=== PATIENT | female | born 1965 | race African-American/Black ===

== ENCOUNTER 2022-11-23 18:43 | Emergency (ER) | payer OTHER, SELFPAY ==
--- NOTE | ~2022-11-23 | XR_ITS ---
EXAM: XR finger 1st LT min 2V DATE: 11/23/2022 19:02 HISTORY: pain, swelling distal phalanx thumb, injury . COMPARISON: None available. FINDINGS: Normal mineralization. No fracture or dislocation. No lytic or blastic lesion. Joint space s are mild scattered degenerative change. No erosion or periosteal change. Soft tissues within normal limits. IMPRESSION: No acute osseous finding in the left thumb. Reviewed, dictated and finalized at location K.
--- NOTE | 2022-11-23 18:48 | ED.UPPEXIN ---
HPI - Extremity Injury (Upper) General Chief Complaint: Extremity Injury, Upper Stated Complaint: lt thumb inj Time Seen by Provider: 11/23/22 19:03 Source: patient and RN notes reviewed Mode of arrival: ambulatory Limitations: no limitations History of Present Illness HPI narrative: 57-year-old female presents concern for injury to the 1st digit of her left hand. She reports she fell in her lung cerumen slammed the finger against the wheel of her treadmill. She reports this happened about 2 hours prior to arrival. She reports pain worsens when she flexes the digit MD complaint: injury to: finger Related Data Home Medications Medication Instructions Recorded Confirmed amlodipine 5 mg tablet mg 11/23/22 desvenlafaxine succinate 50 mg mg PO 11/23/22 tablet,extended release 24 hr olmesartan 40 mg tablet mg 11/23/22 pantoprazole 40 mg tablet,delayed mg PO 11/23/22 release quetiapine 25 mg tablet mg 11/23/22 rosuvastatin 10 mg tablet mg 11/23/22 sennosides 8.6 mg-docusate sodium PO 11/23/22 50 mg tablet (Stimulant Laxative Plus) Allergies Allergy/AdvReac Type Severity Reaction Status Date / Time Penicillins Allergy Rash Verified 11/23/22 19:06 Review of Systems Review of Systems: CONSTITUTIONAL: Denies malaise, chills, sweats, or fever. SKIN: Denies rash or itching, open skin, laceration, abrasion, redness, warmth, swelling. MUSCULOSKELETAL: Reports pain in the 1st digit of the left hand NEUROLOGIC: Denies numbness, weakness All systems reviewed & are unremarkable except as noted in HPI and below PMFSH Comments At time of signature, agree with nursing past medical, surgical, social and family history. There is no relevant family history pertinent to the presenting complaint Exam Narrative: GENERAL: Well-appearing, well-nourished, and in no acute distress. HEAD: Normocephalic EYES: PERRLA, conjunctivae clear NECK: Supple. CHEST: Speaks in full sentences. No respiratory distress. HEART: Regular rate and rhythm. Normal and equal peripheral pulses. EXTREMITIES: 1st digit of left hand has grossly normal strength and sensation. 5/5 strength with digit flexion, extension. Range of motion grossly normal. No clubbing, cyanosis, or edema noted. Lateral mid digit tenderness. Skin intact. Normal digital cascade with flexion of fingers, median, ulnar and radial nerve intact. Normal sensation of each side of finger. Can perform 'okay' sign, 'cross over finger test of index and middle fingers' and 'thumbs up' sign. No scissoring. Normal thumb opposition. Good capillary refill and radial pulse. Distal capillary refill less than 3 seconds. Patient is right/left hand dominant SKIN: Warn, dry, intact, pink. No rash NEURO: Alert and oriented x3. PSYCH: Normal mood and affect Course Course Emergency Course: Patient is aware of diagnosis, understands and agrees to treatment plan. Anticipatory guidance given. Patient agrees to follow-up as directed and is aware of reasons to seek care at the emergency department. Portions of this record may have been created with voice recognition software Level of Care: Express Care Visit Vital Signs Vital signs: Reviewed. MDM - Extremity Injury (Upper) MDM Narrative Medical decision making narrative: Patients injury and pain is consistent with musculoskeletal etiology. No signs of neurological or vascular compromise on exam. Compartments and tissues are soft without signs of compartment syndrome. Pain is felt appropriate for further evaluation on an outpatient basis. Imaging Data My impression: Images reviewed, interpreted by radiologist, agree, see report. Radiologist's impression: EXAM:? XR finger 1st LT min 2V DATE: 11/23/2022 19:02 HISTORY: pain, swelling distal phalanx thumb, injury . COMPARISON:? None available. FINDINGS:? Normal mineralization. No fracture or dislocation. No lytic or blastic lesion. Joint spaces are mild scattered degenerat
[2022-11-23 18:54] VITALS: BP 146/82; PULSE 86; RESP 16; TEMP 36.4; O2SAT 97
[2022-11-23 18:58] VITALS: BP 146/82; PULSE 86; RESP 16; TEMP 36.4; O2SAT 97
== END 2022-11-23 19:17 | disposition home or self-care (01) ==
PROVIDERS: Emergency Provider Nurse Practitioner
DX: S60.012A Contusion of left thumb without damage to nail, initial encounter (principal); W19.XXXA Unspecified fall, initial encounter; E78.00 Pure hypercholesterolemia, unspecified; I10 Essential (primary) hypertension; K21.9 Gastro-esophageal reflux disease without esophagitis
CPT/HCPCS: 29130; 73140; 99213; G0463